=== PATIENT | female | born 1955 | race Two or more races ===

== ENCOUNTER 2023-09-25 07:27 | Day surgery (SDC) | payer OTHER ==
[~2023-09-25] VITALS: Ht 154.9 cm; Wt 45.4 kg
[~2023-09-25 07:27] MED LIST: CLONAZEPAM1 MG PO; OXYC1TAB9 PO
[2023-09-25] MEDS ORDERED: CEFAZOLIN SODIUM 1,000 MG VIAL ONE (08:28)
[2023-09-25] MEDS ORDERED: LIDOCAINE HCL 1%/EPINEPHRINE 20ML VIAL IJ ONE (08:40)
[2023-09-25] MEDS ORDERED: HEPARIN SODIUM,PORCINE 500 UNITS/5 ML VIAL IV ONE (08:40)
[2023-09-25] MEDS ORDERED: TRAMADOL HCL50 MG PO (10:50)
== END 2023-09-25 12:45 | disposition home or self-care (01) ==
LOC: CIR.AMB 07:27
PROVIDERS: ATTEND Surgery
DX: C21.1 Malignant neoplasm of anal canal (principal); F41.9 Anxiety disorder, unspecified; K29.70 Gastritis, unspecified, without bleeding; K57.32 Diverticulitis of large intestine without perforation or abscess without bleeding
CPT/HCPCS: 36561; C1751